=== PATIENT | female | born 1960 | race Two or more races ===

== ENCOUNTER 2025-04-30 11:26 | Emergency (ER) | payer OTHER ==
[~2025-04-30] VITALS: Wt 75.7 kg
[2025-04-30] MEDS ORDERED: ATORVASTATIN CA40 MG PO (12:42)
[2025-04-30] MEDS ORDERED: ROSUVASTATIN CA40 MG PO (12:42)
== END 2025-04-30 14:39 | disposition home or self-care (01) ==
LOC: ER 11:26
DX: L02.222 Furuncle of back [any part, except buttock and flank] (principal)